=== PATIENT | male | born 1945 | race Two or more races ===

== ENCOUNTER 2018-11-06 07:43 | Outpatient (CLI) | payer OTHER | END 2018-11-06 08:19 | disposition home or self-care (01) | LOC: TOM 07:43 | DX: K63.5 Polyp of colon (principal); Z12.11 Encounter for screening for malignant neoplasm of colon ==

== ENCOUNTER 2021-06-02 08:00 | Outpatient (CLI) | payer OTHER | END 2021-06-02 08:30 | disposition home or self-care (01) | LOC: PPH VACUNA 08:00 | DX: Z23 Encounter for immunization (principal) ==

== ENCOUNTER 2022-01-26 08:00 | Outpatient (CLI) | payer OTHER | END 2022-01-26 08:30 | disposition home or self-care (01) | LOC: PPH VACUNA 08:00 | PROVIDERS: ATTEND Emergency Medicine Pediatric Emergency Medicine | DX: Z23 Encounter for immunization (principal) ==

== ENCOUNTER → 2025-01-02 | Emergency (ER) | payer OTHER ==
[~2025-01-02] VITALS: Ht 170.2 cm; Wt 81.6 kg
[~2025-01-02] MED LIST: 0.9 % SODIUM CHLORIDE 1,000 ML IV SCH; AMIODARONE HCL100 MG PO; CEFTRIAXONE SODIUM 1,000 MG VIAL IV ONE; CEFTRIAXONE SODIUM 1,000 MG VIAL ONE; CEFTRIAXONE SODIUM 2,000 MG in 0.9 % SODIUM CHLORIDE 100 ML IV ONE; NAMENDA1 EACH PO; SEROQUEL25 MG PO; TAMSULOSIN HCL 0.4 MG CAP PO SCH; VALSARTAN40 MG PO
[2025-01-02 12:06] LABS: HEMATOCRIT 31.7 % (39.0-48.0); HEMOGLOBIN 10.4 g/dL (13-16.00); MEAN CELL VOLUME 87.9 fL (80.0-100.00); PLATELET COUNT 273 K/uL (150-450); RED CELL DISTRIBUTION WIDTH 15.7 % (11.5-14.5)
[2025-01-02 12:27] LABS: CREATININE SERUM 3.1 mg/dL (0.70-1.30); GFR 19.63; POTASSIUM 3.96 mEq/L (3.5-5.1)
[2025-01-02 12:29] LABS: INR 1.1; PARTIAL THROMBOPLASTIN TIME 31.1 SECONDS (22.0-34.0); PROTHROMBIN TIME 11.9 SECONDS (9.0-11.5)
[2025-01-02 15:04] LABS: URINE APPEARANCE Turbid; URINE BILIRRUBIN Moderate (NEGATIVE); URINE BLOOD Trace; URINE COLOR Red; URINE GLUCOSE Negative (NEGATIVE); URINE KETONE Trace (NEGATIVE); URINE LEUKOCYTE Large; URINE NITRATE Positive; URINE PROTEIN 30 (NEGATIVE); URINE UROBILINOGEN 0.2 E.U./dl
[2025-01-02 15:29] LABS: PH,URINE 8.5 (5.0-8.0)
[2025-01-02 15:30] LABS: URINE BACTERIA FEW; URINE RBC LOADED /HPF; URINE WBC 13-20 /hpf
[2025-01-02 19:53] LABS: INR 1.05; PARTIAL THROMBOPLASTIN TIME 30.8 SECONDS (22.0-34.0); PROTHROMBIN TIME 11.4 SECONDS (9.0-11.5)
[2025-01-02 20:43] LABS: HEMATOCRIT 33.3 % (39.0-48.0); HEMOGLOBIN 10.9 g/dL (13-16.00); MEAN CORPUSCULAR HEMOGLOBIN 28.7 pg (27.00-32.0); MEAN CORPUSCULAR HGB CONC 32.6 g/dl (32.0-36.0); PLATELET COUNT 267 K/uL (150-450); RED BLOOD COUNT 3.79 M/uL (4.00-6.00); RED CELL DISTRIBUTION WIDTH 16.1 % (11.5-14.5)
== END | disposition designated cancer center or children's hospital (05) ==
LOC: ER 10:41
PROVIDERS: Emergency Medicine; General Practice
DX: R31.9 Hematuria, unspecified (principal); G30.8 Other Alzheimer's disease; I10 Essential (primary) hypertension
CPT/HCPCS: 36415; 51702; 74177; 93005; 93041; 96365; 96366; 99285; J7030; Q9965